=== PATIENT | female | born 1995 | race Caucasian/White ===

== ENCOUNTER → 2022-12-18 | Outpatient (CLI) | payer BC, SELFPAY ==
[2023-01-02 20:32] LABS: HPV Reflexed? NOT INDICATED
== END | disposition home or self-care (01) ==
PROVIDERS: Visit Provider Nurse Practitioner Women's Health
DX: Z12.4 Encounter for screening for malignant neoplasm of cervix (principal)
CPT/HCPCS: 88175; G0145

== ENCOUNTER → 2025-01-21 | Outpatient (CLI) | payer BC, SELFPAY ==
--- OUTSIDE RECORDS SUMMARY | 2025-01-21 08:08 | XMS RPT_ITS | CCD ---
Author Organization [facility] Care Team Providers Care Associate Director Of Nursing Name Role Phone Care Physician, No Primary Primary Care Provider Unavailable Care Physician, No Primary Referring Provider Un available Carol Rios Attending Provider Carol Sharma NP Attending Unavailable Care Physician, No Primary Referring Unava ilable Care Physician, No Primary Primary Care Unava ilable Problems Problem Classification Problem Date Documented Da te Episodic/Chronic Malaise and fatigue (1 source) Other fatigue; Translations: [Other fatigue] Onset: 01-04-2025 Episodic Results Test Name Value Interpretation Reference Range Facil it Electro Mechanical Technologist Office Visit Reporton 01-04-2025 Electro Mechanical Technologist Office Visit Report [facility] [address], [address] [place] [address] OFFICE VISIT Date of Service: 01/04/25 MR#: [id number] Acct: [id number] Name: NOEL LARA Rep #: [id number] : 1995 Provider: HEATHER varghese Age/Sex: 29/F Location: [facility] Status: Signed Intake Vital Signs 12/23/23 09:06 01/04/25 09:21 01/04/25 09:25 Height 5 ft 4 in 5 ft 4 in 5 ft 4 in Weight: 117 lb 2 oz BMI 20.0 BP 120/72 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 Has not been attempting but plans to attempt this year. Is taking PNV. Last PAP: 2022 History of abnormal PAP: no Last mammogram: age 39 Female Reproductive History Last Menstrual Period: 01/01/25 Cycle Length: 21-35 Questions: metorrhagia: No and sexually active: No ROS Const Constitutional: Denies fatigue, weight gain or weight loss Cardio Card: Denies chest pain Resp Resp: Denies cough or dyspnea on exertion GI GI: Denies abdominal pain, bloating, change in stool character, constipation or vomiting : Reports as per HPI; Denies difficulty voiding, pelvic pain, urinary frequency, urinary incontinence, urinary urgency, vaginal discharge or vaginal pruritus Exam Const General: cooperative, healthy appearing, no acute distress and well developed Orientation: alert, oriented to person and oriented to place [facility] Head: normal to inspection Neck Neck: normal visual inspection Thyroid: thyroid normal Lymphatic: no lymphadenopathy noted Chest Breast inspection: normal inspection of the breasts and normal inspection of the axillae Breast palpation: normal palpation of the breasts, normal palpation of the axillae and no axillary lymphadenopathy Resp Effort Inspection: normal respiratory effort GI Palpation: soft, no masses and nontender Rectal Exam: deferred External Female Exam: normal external appearance and normal appearance of the urethra Urethra: normal appearance of the urethra and normal palpation Speculum Exam - Vagina: normal appearance of the vagina and normal vaginal discharge Speculum Exam - Cervix: normal appearance of the cervix Bimanual Exam- Vagina Uterus: normal bimanual exam, uterine size normal, uterine shape normal and non-tender Bimanual Exam- Adnexa, other: normal adnexae, no masses, normal and non-tender Pelvic Support: normal Neuro General: patient alert and patient oriented x3 Psych Affect: normal affect Coding Level of Care Code Off vis,est,prev 18-39yrs Diagnoses Encounter for gynecological examination without abnormal finding Z01.419 Gynecological examination findings: abnormal findings ABSENT Assessment and Plan Assessment and Plan (1) Encounter for routine gynecological examination: Qualifiers: Gynecological examination findings: abnormal findings ABSENT Qualified Code(s): Z01.419 - Encounter for gynecological examination (general) (routine) without abnormal findings Orders: Orders Vitamin D,25 Hydroxy Today R53.83 - Other fatigue Lipid Profile Today R53.83 - Other fatigue, Z13.220 - Encounter for screening for lipoid disorders Glucose Today R53.83 - Other fatigue, Z13.1 - Encounter for screening for diabetes mellitus Thyroid Stim Hormone (TSH) Today R53.83 - Other fatigue, Z13.29 - E (more content not included)... 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 Eyes: no eye pain, no vision problems and no dryness of the eyes. ENT: no hearing loss, no nosebleeds and no sinus congestion. Cardiovascular: no chest pain, no palpitations and no orthopnea. Respiratory: no shortness of breath, no cough and no wheezing. Gastrointestinal: no abdominal pain, no constipation, no nausea, no diarrhea and no vomiting. Genitourinary: no dysuria, no urinary incontinence, no vaginal dryness, no vaginal itching, no dyspareunia, no pelvic pain, no dysmenorrhea, no sexual problems, no change in urinary frequency, no vaginal discharge, no unexplained vaginal bleeding and no lesion/sore. Musculoskeletal: no back pain, no joint swelling and no leg edema. Integumentary: no rashes, no skin lesions, no nipple discharge, no breast pain and no breast lump. Neurological: no headache, no numbness and no dizziness. Psychiatric: no sleep disturbances, no anxiety and no depression. Endocrine: no hot flashes, no loss of hair and no hirsutism. Hematologic/Lymphatic: swollen glands, but no tendency for easy bleeding and no tendency for easy bruising. Surgical History History of Cyst excision Social History Always uses seat belt Denied: History of domestic violence Denied: History of drug use Never a smoker Non-smoker (V49.89) (Z78.9) Occasional alcohol use Allergies No Known Drug Allergies Recorded By: Loni Elliott; 03/28/2017 1:10:47 PM Current Meds Xulane 150-35 MCG/24HR Transdermal Patch Weekly; APPLY 1 PATCH WEEKLY DIRECTED; Therapy: [id number] to (Evaluate:03Jun2019) Requested for: [id number]; Last Rx:[id number] Ordered Rx By: Namrata Titus; Dispense: 63 Days ; #:3 X 3 Patch Box; Refill: 3;For: Encounter for counseling regarding contraception; LIV = N; Verified Transmission to [facility] [address]; Last Updated By: Juan José Moss; 01/19/2019 9:38:13 AM Mona Espinoza TABS; Therapy: (Recorded:31Jan2018) to Recorded Dispense: 0 Days ; #: Sufficient; Refill: 0; LIV = N; Record; Last Updated By: Preethi Carrion; 01/19/2019 9:37:13 AM Vitals Vital Signs Recorded: 19Jan2019 09:07AM Heart Rate62 Mwvxowsv060 Kskdmrksv30 Height5 ft 4 in Qwsabl243 lb BMI Thqfmlxuya28.05 BSA Calculated1.52 [id number] Gravida0 Pain Scale0 Physical Exam Constitutional: Alert and in no acute distress. Well developed, well nourished. Head and Face: Head and face: Normal. Eyes: Normal external exam - nonicteric sclera, extraocular movements intact (EOMI) and no ptosis. Ears, Nose, Mouth, and Throat: External inspection of ears and nose: Normal. Neck: No neck asymmetry. Supple. Pulmonary: No respiratory distress. Skin: Normal skin color and pigmentation, normal skin turgor, and no rash. Neurologic: non-focal. Grossly intact. Psychiatric: Alert and oriented x 3. Affect normal to patient baseline. Mood: Appropriate. Diagnoses/Problems Contraception management (V25.9) (Z30.9) Orders Renew: Xulane 150-35 MCG/24HR Transdermal Patch Weekly; APPLY 1 PATCH WEEKLY DIRECTED Rx By: Namrata Titus; Dispense: 63 Days ; #:3 X 3 Patch Box; Refill: 4;For: Encounter for counseling regarding contraception; LIV = N; Verified Transmission to [facility] [address]; Last Updated By: AjayBirdback; 01/19/2019 9:38:13 AM Stop: Lo Loestrin Fe TABS Dispense: 0 Days ; #: Sufficient; Refill: 0; LIV = N; Record; Last Updated By: Namrata Titus; 01/19/2019 9:37:13 AM Provider Impressions 23 YO G0 doing well with Xulane patch. 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 Photocopy Operator Declined rona Fox [facility] History of Present Illness Patient is a 23 year YO who presents for eval and mgmt of contraception. Was on Lo-Loestrin prior to Aug 2018. Prior to that was on another OCP x 2-3 years. Has most recently been using condoms. Would like a more convenient method. Also had some negative emotional responses with Altavera (levonorgestrel) in the past, though she tolerated Loestrin (norethindrone) and Chateal (levonorgestrel) well. Has been thinking about Paragard. Risks, expected benefits, and potential side effects of treatment reviewed with patient. Sadly, pt's uterus sounded only to 4cm, c/w with a small size palpated on exam. I did not recommend placing the Paragard given the size of her uterus. After discussion, pt would like to try the patch. OBHx: G0, no current plans to get GynHx: Menstrual Pattern: Menarche 12. LMP 09/08/18. Periods used to be q28 days, but at some point, they shortened to q14-20 days a few years ago, and she got on OCPs to regulate. Was amenorrheic on Lo-Loestrin. After she stopped OCPs, periods resumed, lasted 6 days with 2 heavier days (3-4 pads). 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 Substance: no T/D, social EtOH CAGE: neg Abuse: denies Depression Screen: negative PMH: seasonal ALL PSH: removal of cyst on face FamHx: Surgical History History of Cyst excision Social History Always uses seat belt Denied: History of domestic violence Denied: History of drug use Never a smoker Non-smoker (V49.89) (Z78.9) Occasional alcohol use Allergies No Known Drug Allergies Recorded By: Loni Elliott; 03/28/2017 1:10:47 PM Current Meds Lo Loestrin Fe TABS; Therapy: (Recorded:31Jan2018) to Recorded Dispense: 0 Days ; #: Sufficient; Refill: 0; LIV = N; Record; Last Updated By: Preethi Carrion; 01/31/2018 4:12:29 PM Vitals Vital Signs Recorded: 20Ijg5612 09:40AM Sadbwmzd947 Hsahgjsur61 Height5 ft 4 in Ojugzw578 lb BMI Jldekvldcs71.05 BSA Calculated1.52 [id number] Gravida0 Para0 Pain Scale0 Physical Exam Constitutional: Alert and in no acute distress. Well developed, well nourished. Head and Face: Head and face: Normal. Eyes: Normal external exam - nonicteric sclera, extraocular movements intact (EOMI) and no ptosis. Ears, Nose, Mouth, and Throat: External inspection of ears and nose: Normal. Neck: No neck asymmetry. Supple. Pulmonary: No respiratory distress. Abdomen: Soft nontender; no abdominal mass palpated. No organomegaly. No hernias. Genitourinary: External genitalia: Normal. Palpation of lymph nodes in groin: No inguinal lymphadenopathy. Bartholin's Urethral and Skenes Glands: Normal. Urethra: Normal. Bladder: Normal on palpation. Vagina: Normal. Cervix: Normal. Uterus: Normal. Right Adnexa/parametria: Normal. Left Adnexa/parametria: Normal. Inspection of Perianal Area: Normal. Musculoskeletal: No joint swelling seen, normal movements of all extremities. Skin: Normal skin color and pigmentation, normal skin turgor, and no rash. Neurologic: non-focal. Grossly intact. Psychiatric: Alert and oriented x 3. Affect normal to patient baseline. Mood: Appropriate. Procedure Procedure: ParaGard (IUD) placement. IUD Insertion Indications: contraception. Risks, benefits and alternatives were discussed with the patient. We discussed possible complications and risks, including infection, bleeding, pelvic pain, expulsion, failure, uterine perforation and increased risk of ectopic should occur. Written consent was obtained prior to the procedure and is detailed in the patient's record. the patient's LMP was 09/08/18 . a test was performed . the test was confirmed negative. Procedure Note: Anesthesia: none. The cervix was stabilized with a single toothed tenaculum. The tenaculum was placed on the Anterior lip of the cervix. The cervix required no dilation. The uterus was anteverted and sounded to 4cm. Post-Procedure: Patient Status: the patient tolerated the procedure well . Procedure stopped due to small size of uterus. Complications: there were no complications. Diagnoses/Problems Encounter for counseling regarding contraception (V25.09) (Z30.09) Encounter for insertion of intrauterine contraceptive device (IUD) (V25.11) (Z30.430) Orders Start: Xulane 150-35 MCG/24HR Transdermal Patch Weekly; APPLY 1 PATCH WEEKLY DIRECTED Rx By: Namrata Titus; Dispense: 63 Days ; #:3 X 3 Patch Box; Refill: 3;For: Encounter for counseling regarding contraception; LIV = N; Sent To: [facility] [address] Bacterial Vaginosis Panel; Specimen Source:Vaginal Swab; Status:Canceled - Retrospective By Protocol Authorization; Perform:Lab Services - Lab To Draw (Non-Blood Test); Due:23Dec2018; Last Updated By:Rona Fox; 09/24/2018 9:51:34 AM;Ordered; For:PMH: Bacterial vaginosis; Ordered By:Namrata Titus; Trichomonas Vaginalis, Amplified; Status:Canceled - Retrospective By Protocol Authorization; Perform:Lab Services - Lab To Draw (Non-Blood Test); Due:23Dec2018; Last Updated By:Rona Fox; 09/24/2018 9:51:34 AM;Ordered; For:PMH: Screening for STDs (sexually transmitted diseases); Ordered By:Namrata Titus; Cult, Fungus, yeast only; Specimen Source:Genital; Status:Canceled - Retrospective By Protocol Authorization; Perform:Lab Services - Lab To Draw (Non-Blood Test); Due:23Dec2018; Last Updated By:Rona Fox; 09/24/2018 9:51:34 AM;Ordered; For:PMH: Vaginal yeast infection; Ordered By:Namrata Titus; Tobacco Use Screening; Status:Complete; Done: [id number] Perform:Not Applicable;Ordered; For:SocHx: Never a smoker; Ordered By:Rona Fox; Provider Impressions 23 YO G0 with hx mood side effects on OCPs, who desires LARC. Paragard placement attempted, but due to small uterine size, was not placed. Discussion of alternatives reviewed. Pt would like to try patch for now since it can be easily stopped if giving her side effects. We discussed that if she tolerates that well, perhaps she had a bad batch of Altavera in the past, and that she could tolerate hormonal contraception and can then move onto a more reliable form of hormonal contraception. RV 3 months. Normal [facility] MEDCO-14on 01-31-2018 MEDCO-14 MEDCO-14 MEDCO-14 Physician's Report of Work Ability [id number] Injured Worker: NOEL ROMERO Date of injury: 01/31/18 Date of last appointment/examinatio n: 01/31/18 Date of this appointment/examinatio n: 01/31/18 1. MEDCO-14 submission (select one of the options below.) I have never completed a MEDCO-14. Proceed to section 2. 2. Employment/Occupation (Complete this section and proceed to section 3.) Updates: No Yes, I have reviewed the description of the injured worker's job held on the date of the injury (former position of employment). Job description provided by: Injured worker. 3A. Work Status/Injured worker's capabilities. Updates: No Does the injured worker have any physical or health restrictions related to allowed conditions in the claim? No The injured worker is released to work as of the date of this exam. Proceed to Section 8 3B. Can the injured worker return to full duties of his/her job held on the date of injury (former position of employment)? The injured worker could not do the job held on the date of the injury for this period of restricted duty. Date: Proceed to section 3C 3C. Please indicate which of the activities listed below the injured worker can perform (even if the response to 3B is No.) The injured worker is not released to the former position of employment but may return to available and appropriate work with restrictions, the possible return to work date: If the injured worker is taking prescribed medications for the allowed conditions in this claim, can the injured worker safely: Please indicate the following: N=Never, O=Occasionally, F=Frequently, C=Continuously In an eight-hour workday, how many total hours can the injured worker: Does the injured worker have any functional restrictions based only on allowed psychological conditions? Note: If Yes is indicated please reference the MEDCO-16 as needed. Additionally, please provide any additional information addressing the injured worker's capabilities and/or job accommodations which may not be addressed above. 4A. Disability information (If 3B above is No or dates updated - all 4A keane, including site/location if applicable must be completed) Complete the chart below and furnish the narrative description of the diagnosis(es), site/location, if applicable, and the ICD code(s) for the condition(s) being treated due to the work-related injury/disease. Please indicate if the condition is preventing the injured worker from returning to job duties he/she held on the date of the injury. 5. Clinical findings: You can reference offices notes in lieu of writing clinical findings below. Provide your clinical and objective findings supporting your medical opinion outlined on this form. List barriers to return to work and reason, for the injured worker's delay in recovery. 6. Maximum medical improvement (MMI): MMI is a treatment plateau (static or well-stabilized) at which no fundamental functional or physiological change can be expected within reasonable medical probability, in spite of continuing medical or rehabilitative procedures. Has the work-related injury(s) or occupational disease reached MMI based on the definition above? No, the proposed treatment plan, including estimated duration of each treatment. *Note: An injured worker may need supportive treatment to maintain his or her level of function after reaching MMI. Thus, periodic medical treatment may still be requested and provided. 7. Vocational rehabilitation: Vocational rehabilitation is an individualized and voluntary program for an eligible injured worker who needs assistance in safely returning to work or in retaining employment.This program can be tailored around an injured worker's restrictions and may provide job seeking skills or necessary retraining. Is the injured worker a candidate for vocational rehabilitation services focusing on return to work? If no, please explain why and provide your recommendations to help the injured worker return to employment. 8. Treating physician signature - mandatory I certify the information on this form is correct to the best of my knowledge. I am aware that any person who knowingly makes a false statement, misrepresentation, concealment of fact or any other act of fraud to obtain payment as provided by [facility], or who knowingly accepts payment to which that person is not entitled, is subject to felony criminal prosecution and may be punished, under appropriate criminal provisions. by a fine or imprisonment or both. Treating physician's name (please print legibly): Preethi Carrion M.D. 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 When she pulled her right hand out, the blade grazed her right thumb. The right thumbnail was sliced off along with a portion of the nailbed. It is still bleeding. Patient states she used antiseptic wipe before applying a gauze over the wound. Patient states she is otherwise healthy per she is not on blood thinners. Last tetanus vaccine was in 2006. Pain level and 1/10 severity. She is right-handed. Review of Systems Chart Histories Review: Past Medical History reviewed. Past Social History reviewed. ROS as per HPI. *Current Meds Medication NameInstruction Lo Loestrin Fe TABS *Allergies No Known Drug Allergies *Vitals Vital Signs Recorded: 31Jan2018 04:08PM Temperature: 98.6 F Heart Rate: 77 Respiration: 16 Systolic: 156 Diastolic: 79 O2 Saturation: 100 Physical Exam Constitutional: Vital signs reviewed. Well developed and well nourished. Patient alert and without distress. Cardiovascular: RUE pulses normal, normal capillary refill. Neurologic: Cortical function: Normal. Motor/sensory: Normal Skin: + Laceration-avulsion of oh start of the right thumbnail and laceration of the underlying nailbed. It is bleeding. The laceration measures 1 x 0.6 cm. No bone visible or palpable, no foreign body noted. The base of the nail is intact. The nail folds are normal without signs of infection. The rest of the right hand skin exam unremarkable. Musculoskeletal: The right thumb has no bone tenderness or deformity. No joint laxity. Normal range of motion. Procedure Informed consent, done. The wound is cleaned with 500 mL of saline. Gelfoam applied then Coban and Telfa. Good hemostasis. Patient tolerated well. I personally discussed wound care with patient. *Diagnosis/Problems Laceration of left thumb without foreign body with damage to nail, initial encounter (883.0) (L08.683R) *Orders Administer: Tdap; INJECT 0.5 ML Intramuscular; To Be Done: 31Jan2018 *Patient Discussion/Summary Go to the emergency department for severe symptoms. Keep the area clean and dry. Dressing change 2 times a day, start tomorrow morning. Cleanse with mild soap and warm water. Do not use hydrogen peroxide. Allow to air dry or pat dry gently; okay to use Q-tips if you wish. Did not remove the Gelfoam. The Gelfoam acts like a scab and will fall off on its own when ready - about one week. Once the Gelfoam falls off, you may use antibiotic ointment over the wound. Apply a thin coat of antibiotic ointment such as ogad-uup-cqstlfl bacitracin, Neosporin or triple antibiotic. Cover with Band-Aid or appropriate dressing material. After 3-4 days, one may be left open to air dry if not draining, unless it is likely to get dirty (such as being outdoors or at work). Watch for signs of infection such as swelling, excessive redness or pain, drainage of pus, area is warm to touch, fever - see a doctor immediately. Shower daily as usual but no baths, hot tubs or swimming until wound is healed and stitches are removed. Acetaminophen 500 mg (Extra StrengthTylenol), 2 tablets every 6 hours as needed for fever or pain. MEDCO-14 MEDCO-14 Physician's Report of Work Ability [facility] Injured Worker: NOEL ROMERO Date of injury: 01/31/18 Date of last appointment/examinatio n: 01/31/18 Date of this appointment/examinatio n: 01/31/18 1. MEDCO-14 submission (select one of the options below.) I have never completed a MEDCO-14. Proceed to section 2. 2. Employment/Occupation (Complete this section and proceed to section 3.) Updates: No Yes, I have reviewed the description of the injured worker's job held on the date of the injury (former position of employment). Job description provided by: Injured worker. 3A. Work Status/Injured worker's capabilities. Updates: No Does the injured worker have any physical or health restrictions related to allowed conditions in the claim? No The injured worker is released to work as of the date of this exam. Proceed to Section 8 3B. Can the injured worker return to full duties of his/her job held on the date of injury (former position of employment)? The injured worker could not do the job held on the date of the injury for this period of restricted duty. Date: Proceed to section 3C 3C. Please indicate which of the activities listed below the injured worker can perform (even if the response to 3B is No.) The injured worker is not released to the former position of employment but may return to available and appropriate work with restrictions, the possible return to work date: If the injured worker is taking prescribed medications for the allowed conditions in this claim, can the injured worker safely: Please indicate the following: N=Never, O=Occasionally, F=Frequently, C=Continuously In an eight-hour workday, how many total hours can the injured worker: Does the injured worker have any functional restrictions based only on allowed psychological conditions? Note: If Yes is indicated please reference the MEDCO-16 as needed. Additionally, please provide any additional information addressing the injured worker's capabilities and/or job accommodations which may not be addressed above. 4A. Disability information (If 3B above is No or dates updated - all 4A keane, including site/location if applicable must be completed) Complete the chart below and furnish the narrative description of the diagnosis(es), site/location, if applicable, and the ICD code(s) for the condition(s) being treated due to the work-related injury/disease. Please indicate if the condition is preventing the injured worker from returning to job duties he/she held on the date of the injury. 5. Clinical findings: You can reference offices notes in lieu of writing clinical findings below. Provide your clinical and objective findings supporting your medical opinion outlined on this form. List barriers to return to work and reason, for the injured worker's delay in recovery. 6. Maximum medical improvement (MMI): MMI is a treatment plateau (static or well-stabilized) at which no fundamental functional or physiological change can be expected within reasonable medical probability, in spite of continuing medical or rehabilitative procedures. Has the work-related injury(s) or occupational disease reached MMI based on the definition above? No, the proposed treatment plan, including estimated duration of each treatment. *Note: An injured worker may need supportive treatment to maintain his or her level of function after reaching MMI. Thus, periodic medical treatment may still be requested and provided. 7. Vocational rehabilitation: Vocational rehabilitation is an individualized and voluntary program for an eligible injured worker who needs assistance in safely returning to work or in retaining employment.This program can be tailored around an injured worker's restrictions and may provide job seeking skills or necessary retraining. Is the injured worker a candidate for vocational rehabilitation services focusing on return to work? If no, please explain why and provide your recommendations to help the injured worker return to employment. 8. Treating physician signature - mandatory I certify the information on this form is correct to the best of my knowledge. I am aware that any person who knowingly makes a false statement, misrepresentation, concealment of fact or any other act of fraud to obtain payment as provided by [facility], or who knowingly accepts payment to which that person is not entitled, is subject to felony criminal prosecution and may be punished, under appropriate criminal provisions. by a fine or imprisonment or both. Treating physician's name (please print legibly): Preethi Carrion M.D. [facility] provider (Anat) number: [phone] Complete Address, Telephone, Fax number and Date: [address] [place] [address] 01/31/18 Treating physician's signature: Normal [facility] Vital Signs Date Time Vital Sign Value Performing Clinician Patrick flores 01-04-2025 09:25-0400 Body height 162.56 cm No Primary Care Physician [facility] 01-04-2025 09:21-0400 Body mass index (BMI) [Ratio] 20 kg/m2 No Primary Care Physician [facility] 01-04-2025 09:21-0400 Body weight 53.12 kg No Primary Care Physician [facility] 01-04-2025 09:21-0400 Diastolic blood pressure 72 mm[Hg] No Primary Care Physician [facility] 01-04-2025 09:21-0400 Systolic blood pressure 120 mm[Hg] No Primary Care Physician [facility] Encounters Encounter Date Encounter Type Care Provider Facility Start: 01-04-2025 Encounter for gynecological examination (general) (routine) without abnormal findings Carol Sharma NP [facility] Start: 01-04-2025 End: 01-04-2025 Patient encounter procedure Carol ROMERO -[facility] Work Phone: Start: 01-04-2025 End: 01-04-2025 ambulatory No Primary Care Physician [facility] Work Phone: Procedures Date Procedure Procedure Detail Performing Clinician Start: 01-31-2018 Follow-up visit Plan of Treatment Date Care Activity Detail Author Glucose [Mass/volume] in Serum or Plasma [facility] Lipid 1996 panel - Serum or Plasma [facility] T4 free measurement [facility] Thyroid stimulating hormone measurement [facility] Thyroperoxidase Ab [ Units/volume] in Serum or Plasma [facility] Vitamin D, 25-hydroxy measurement [facility] Payers Date Payer Category Payer Self-pay 2024 Unknown [id number] Unknown [id number] Social History Date Type Detail Facility Start: 12-18-2022 Tobacco smoking stat [facility] Never smoked tobacco (finding) [facility] Start: 1995 Sex Assigned At Female [facility] Progress note 01-04-2025 Note Date & Type Note Facility 01-04-2025 Progress note [facility] Clinical Note 03-06-2021 Note Date & Type Note Facility 03-06-2021 Note Patient Outreach (NE TNAV) NOEL ROMERO ([id number]) 1995 F Date Time Provider Department 03/06/21 SUSI AGUAYO (PSS) NETNAV During your visit today, we recorded the following information about you: Susi Aguayo Pss 03/06/2021 8:21 AM Signed POPULATION HEALTH NAVIGATION OUTREACH Action/FYI LM and sent Doculynxhart message to schedule Cervical Cancer screening. Contact made with patient or family member? NO Pt identified by name and : NO Outreach Outcome/Action Unable to reach patient: Left message Teladochart message sent Reason for Outreach Care Gap or Scheduling/Wellness visits Payer: Payor: ANTHEM / Plan: BLUE CARD PPO / Product Type: PPO / Care Gap Reviewed:: Annual Wellness visit Reminder: Reminder note to check Health Maintenance for items below Health Maintenance items due: HPV VACCINE(1 - 2-dose series) Never done DEPRESSION SCREENING Never done COVID-19 VACCINE(1) Never done HEPATITIS C SCREENING Never done HIV SCREENING Never done DTAP,TDAP,TD(7 - Td or Tdap) due on 01/31/2017 PAP TESTING due on 04/15/2020 Advanced Directives Completed: Have you ever planned for future healthcare decisions with a power of insurance defense attorney, living will, or advance directives? Referrals: Message Sent to Practice: Navigation Signature: Susi Carlton March 06, 2021 8:21 AM Allergies As of Date: 03/06/2021 (No Known Allergies) Date Reviewed: 04/15/2017 Reviewed by: Leah DianeRecoverer) Lona - Fully Assessed Reason for Visit: Population Health Navigation Outreach [3910] Cmt: [facility] ANNUAL EXAM Prescriptions as of 03/06/2021 - norethindrone-e.estradiol-iron (LO LOESTRIN FE) 1 mg-10 mcg (24)/10 mcg (2) tab Take 1 tablet by mouth once daily. - ibuprofen (MOTRIN) 800 mg tablet Problem List As Of Date 03/06/2021 Noted Resolved BENIGN NEOPLASM NEC - FACE [D36.7] 03/06/2004 Stress fracture of fibula [M84.369A] 01/25/2011 Ankle pain [M25.579] 02/19/2011 Vulvar abscess [N76.4] 03/29/2017 Encounter Status:Closed by SUSI COLEMAN on 03/06/21 [facility] Progress note 03-06-2021 Note Date & Type Note Facility 03-06-2021 Note HNO ID: [id number] Author: Susi Carlton Service: ? Author Type: ? Type: Progress Notes Filed: 03/06/2021 8:21 AM Note Text: POPULATION HEALTH NAVIGATION OUTREACH Action/FYI LM and sent Doculynxhart message to schedule Cervical Cancer screening. Contact made with patient or family member? NO Pt identified by name and : NO Outreach Outcome/Action Unable to reach patient: Left message MyChart message sent Reason for Outreach Care Gap or Scheduling/Wellness visits Payer: Payor: JENNIFEREM / Plan: BLUE CARD PPO / Product Type: PPO / Care Gap Reviewed:: Annual Wellness visit Reminder: Reminder note to check Health Maintenance for items below Health Maintenance items due: HPV VACCINE(1 - 2-dose series) Never done DEPRESSION SCREENING Never done COVID-19 VACCINE(1) Never done HEPATITIS C SCREENING Never done HIV SCREENING Never done DTAP,TDAP,TD(7 - Td or Tdap) due on 01/31/2017 PAP TESTING due on 04/15/2020 Advanced Directives Completed: Have you ever planned for future healthcare decisions with a power of insurance defense attorney, living will, or advance directives? Referrals: Message Sent to Practice: Navigation Signature: Susi Aguayo Pss March 06, 2021 8:21 AM [facility] Evaluation note Note Date & Type Note Facility Evaluation note No assessment information availa ble [facility] Work Phone: Progress note Note Date & Type Note Facility Progress note Note Date/Time January 04, 2025 9:37a m [facility] [address], [address] [place] [address] OFFICE VISIT Date of Service: 01/04/25 MR#: [id number] Acct: [id number] Name: NOEL LARA Rep #: [id number] : 1995 Provider: HEATHER Sharma Age/Sex: 29/F Location: [facility] Status: Signed Intake Vital Signs 12/23/23 09:06 01/04/25 09:21 01/04/25 09:25 Height 5 ft 4 in 5 ft 4 in 5 ft 4 in Weight: 117 lb 2 oz BMI 20.0 BP 120/72 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 Has not been attempting but plans to attempt this year. Is taking PNV. Last PAP: 2022 History of abnormal PAP: no Last mammogram: age 39 Female Reproductive History Last Menstrual Period: 01/01/25 Cycle Length: 21-35 Questions: metorrhagia: No and sexually active: No ROS Const Constitutional: Denies fatigue, weight gain or weight loss Cardio Card: Denies chest pain Resp Resp: Denies cough or dyspnea on exertion GI GI: Denies abdominal pain, bloating, change in stool character, constipation or vomiting : Reports as per HPI; Denies difficulty voiding, pelvic pain, urinary frequency, urinary incontinence,urinary urgency, vaginal discharge or vaginal pruritus Exam Const General: cooperative, healthy appearing, no acute distress and well developed Orientation: alert, oriented to person and oriented to place HENHI Head: normal to inspection Neck Neck: normal visual inspection Thyroid: thyroid normal Lymphatic: no lymphadenopathy noted Chest Breast inspection: normal inspection of the breasts and normal inspection of theaxillae Breast palpation: normal palpation of the breasts, normal palpation of the axillae and no axillary lymphadenopathy Resp Effort & Inspection: normal respiratory effort GI Palpation: soft, no masses and nontender Rectal Exam: deferred External Female Exam: normal external appearance and normal appearance of the urethra Urethra: normal appearance of the urethra and normal palpation Speculum Exam - Vagina: normal appearance of the vagina and normal vaginal discharge Speculum Exam - Cervix: normal appearance of the cervix Bimanual Exam- Vagina & Uterus: normal bimanual exam, uterine size normal, uterine shape normal and non-tender Bimanual Exam- Adnexa, other: normal adnexae, no masses, normal and non-tender Pelvic Support: normal Neuro General: patient alert and patient oriented x3 Psych Affect: normal affect Coding Level of Care Code Off vis,est,prev 18-39yrs Diagnoses Encounter for gynecological examination without abnormal finding Z01.419 Gynecological examination findings: abnormal findings ABSENT Assessment and Plan Assessment and Plan (1) Encounter for routine gynecological examination: Qualifiers: Gynecological examination findings: abnormal findings ABSENT Qualified Code(s): Z01.419 - Encounter for gynecological examination (general) (routine) without abnormal findings Orders: Orders Vitamin D,25 Hydroxy Today R53.83 - Other fatigue Lipid Profile Today R53.83 - Other fatigue, Z13.220 - Encounter for screening for lipoid disorders Glucose Today R53.83 - Other fatigue, Z13.1 - Encounter for screening for diabetes mellitus Thyroid Stim Hormone (TSH) Today R53.83 - Other fatigue, Z13.29 - Encounter forscreening for other suspected endocrine disorder T4 Free Direct Today R53.83 - Other fatigue Thyroid Peroxidase AB Today R53.83 - Other fatigue Plan Completed breast and pelvic exam Reviewed diet and exercise Pap 2022 Health screen labs Enc to establish with PCP breast self exam encouraged monthly Contraception condoms RTO 1 year, prn with problems Carol Sharma CNP 01/04/25 0937 <Electronically signed by Carol painting [employer]> Date _ Carol Sharma NP [employer] Cosigner Signature: Date (if applicable) CC: ~ [facility] Work Phone: Reason for referral (narrative) Note Date & Type Note Facility Reason for referral (narrative) No reason for referral information available [facility] Work Phone: Summary Purpose Family History No Family History Records Found Relationship Condition Age at Onset Recorded Date/T lawanda grandmother Malignant neoplasm Unknown uncle Malignant neoplasm Unknown Advance Directives No Advanced Directives Records FoundNo Advanced Directives Records FoundNo Advanced Directives Records Found Chief Complaint and Reason for Visit Chief Complaint Admit Date 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) January 04, 2025 9:19a m Additional Source Comments INFORMATION SOURCE (unrecogn ized section and content) DATE CREATED AUTHOR 01/20/2019 [employer] DATE CREATED AUTHOR AUTHOR'S ORGANIZ ATION 08/29/2021 [facility] DATE CREATED AUTHOR AUTHOR'S ORGANIZ ATION 01/04/2025 [facility] Care Teams (unrecognized sec tion and content) Team Status: Active Member Role Status Dates No Primary Care Physician Primary Care Provider Active Team Status: Inactive Member Role Status Dates No Primary Care Physician Primary Care Provider Active Start: January 04, 2025 End: January 04, 2025 No Primary Care Physician Referring Provider Active Start: January 04, 2025 End: January 04, 2025 Carol Sharma [employer], [employer] Attending Provider Active Start: January 04, 2025 End: January 04, 2025 Goals (unrecognized section and content) Goals may be documented in a n alternate section FOR RECORDS PERTAINING TO PATIENTS WHO ARE OR HAVE BEEN ENROLLED IN A CHEMICAL DEPENDENCY/SUBSTANCEABUSE PROGRAM, SOME INFORMATION MAY BE OMITTED. This clinical summary was aggregated from multiple sources. Caution should be exercised in using it in the provision of clinical care. This summary normalizes information from multiple sources, and as a consequence, information in this document may materially change the coding, format and clinical context of patient data. In addition, data may be omitted in some cases. CLINICAL DECISIONS SHOULD BE BASED ON THE PRIMARY CLINICAL RECORDS. [facility]. provides no warranty or guarantee of the accuracy or completeness of information in this document.
[2025-01-21 09:48] LABS: Cholesterol 188 mg/dL (<=200); Glucose 90 mg/dL (70-99); High Density Lipoprotein 61 mg/dL; Low Density Lipoprotein Calc. 112 mg/dL; Triglycerides 72 mg/dL; Very Low Density Lipoprotein 14 mg/dL (5-40); Vitamin D,25 Hydroxy 36.6 ng/mL (30-100); cholesterol:hdl ratio screen 3.07
[2025-01-22 04:07] LABS: Thyroid Peroxidase AB < 9 IU/mL (0-34)
== END | disposition home or self-care (01) ==
LOC: LAB 07:59
PROVIDERS: Referring Provider Nurse Practitioner Women's Health; Visit Provider Nurse Practitioner Women's Health
DX: Z13.1 Encounter for screening for diabetes mellitus (principal); R53.83 Other fatigue; Z13.220 Encounter for screening for lipoid disorders; Z13.29 Encounter for screening for other suspected endocrine disorder
CPT/HCPCS: 36415; 80061; 82306; 82947; 84439; 84443; 86376

== ENCOUNTER → 2025-07-08 | Outpatient (CLI) | payer BC, SELFPAY ==
[2025-07-12 19:08] LABS: Chlamydia By Nucleic Acid AMP Negative (Negative); Gonococcus By Nucleic Acid AMP Negative (Negative)
== END | disposition home or self-care (01) ==
LOC: LABSPEC 15:36
PROVIDERS: Referring Provider Obstetrics & Gynecology; Visit Provider Obstetrics & Gynecology
DX: Z34.00 Encounter for supervision of normal first pregnancy, unspecified trimester (principal)
CPT/HCPCS: 87086; 87491; 87591